=== PATIENT | female | born 1960 | race Caucasian/White ===

== ENCOUNTER → 2016-08-05 | Outpatient (CLI) | payer MEDICARE, OTHER ==
--- NOTE | 2016-08-05 14:18 | MM ---
Reason for exam: screening (asymptomatic). Baseline mammogram. History: Patient is postmenopausal. Took estrogen for 22 years beginning at age 30. Physical Findings: Nurse did not find any significant physical abnormalities on exam. MG 3D Screening Mammo W/Cad Bilateral CC and MLO view(s) were taken. No prior studies available for comparison. The breast tissue is almost entirely fat. Finding: There are typically benign dystrophic calcifications in the inner quadrant. There is no discrete abnormality. These results were verbally communicated with the patient and result sheet given to the patient on 08/05/16. ASSESSMENT: Benign, BI-RAD 2 RECOMMENDATION: Routine screening mammogram of both breasts in 1 year.
== END | disposition home or self-care (01) ==
LOC: RADMAMWWP 13:23
PROVIDERS: ATTEND Family Medicine
DX: Z12.31 Encounter for screening mammogram for malignant neoplasm of breast (principal)
CPT/HCPCS: 77063; G0202

== ENCOUNTER → 2016-12-07 | Outpatient (CLI) | payer MEDICARE, OTHER ==
--- NOTE | 2016-12-08 07:52 | WWHP ---
[facility] - HISTORY AND PHYSICAL DATE OF SERVICE: 12/07/2016 CHIEF COMPLAINT: The patient is here for her routine gynecologic exam. HPI: This is a 56-year-old G4, P2-0-2-2 with an LMP of 1997. She is status post MARIA GUADALUPE , BSO for endometriosis. The patient states it has been more than 15 years since her last pelvic exam. She has been experiencing occasional light vaginal bleeding about 2 times per month. She states this has been going on for at least 6 months. She has not been sexually active for more than 2 years. She states when she was sexually active , it was very uncomfortable and dry feeling. The more recent bleeding episodes are not related to any particular activity. She denies placing anything into the vagina. She previously used Ogen for the ERT, but this was discontinued in 2012 when she started having heart problems. She believes she has been having more fatigue and anxiety since the Ogen was discontinued. PAST MEDICAL HISTORY: Cardiac arrhythmia since 2012, status post cardiac ablation x2, history of anxiety and depression, asthma, and she has a skin condition called granuloma annulare. MEDICATIONS: 1. Potassium supplement daily. 2. Vitamin D3, 2000 units 2 p.o. daily. 3. Aspirin 81 mg daily. 4. Dyazide 37.5/25 mg 1 b.i.d. 5. Singulair 10 mg daily. 6. Celexa 40 mg daily. 7. Ativan 1 mg t.i.d. p.r.n. 8. Betamethasone 0.5% cream applied daily. ALLERGIES: Allergies to SULFA DRUGS, VANCOMYCIN, ERYTHROMYCIN and STATIN DRUGS. PAST SURGICAL HISTORY: section x2, cholecystectomy, MARIA GUADALUPE BSO in 1997, colonoscopy in 2014 and she has had one other one prior to that and also 2 cardiac ablation procedures in 2012. PAST OB HISTORY: Two sections and 2 spontaneous abortions. PAST TRAFFIC ENUMERATOR HISTORY: She underwent a MARIA GUADALUPE BSO for endometriosis. She does have a history of genital herpes with infrequent outbreaks. She has no other history of STDs. SOCIAL HISTORY: She denies tobacco, alcohol, and drug use. She is and is not seeing anybody at this time. FAMILY HISTORY: Father had colon cancer and an FL. Brother had thyroid cancer and another brother had melanoma. One brother had an FL. Both parents had type 1 diabetes and a brother also had type 1 diabetes. REVIEW OF SYSTEMS: She states she has gained lots of weight since her cardiac problems in 2012. She believes she has gained up to 100 pounds since that time. She denies respiratory or cardiac problems. GI: She does have frequent constipation. PHYSICAL EXAM: Blood pressure 120/70. This had to be taken manually since the automatic cuff was unable to register a blood pressure. The beats seem to be variable in intensity when obtaining the blood pressure. Height 5 feet 5 inches, weight 236 pounds, temperature 98.8, pulse 70 with variable intensity beats. This is a well-developed, heavyset white female, who is alert and oriented x3, in no acute distress. HEENT is within normal limits. NECK: Supple without mass or thyromegaly. CHEST AND LUNGS: Clear to auscultation. HEART: Irregularly, irregular rhythm with variable intensity beats. Breasts are without mass or discharge. Axillary exam is negative for adenopathy. BACK: Negative for CVA tenderness. ABDOMEN: Obese, soft, nontender, without palpable masses. PELVIC EXAM: Normal external genitalia with mild atrophy. Vagina reveals mild atrophy without lesions. The vaginal cuff was slightly friable upon doing the Pap smear. There is no unusual discharge or odor. There is no evidence of prolapse. Bimanual exam is negative for mass or tenderness. Rectovaginal exam is negative for mass or tenderness and is negative for occult blood. EXTREMITIES: Nontender. IMPRESSION: 1. A 56-year-old menopausal female, status post total abdominal hysterectomy, bilateral salpingo-oophorectomy for benign reasons with unremarkable gynecologic exam. 2. Intermittent postmenopausal vaginal bleeding and the patient is status post MARIA GUADALUPE, BSO. 3. Multiple medical problems including cardiac arrhythmia. PLAN: 1. Pap smear of the vaginal cuff was performed because of the abnormal vaginal bleeding. 2. Self breast examination was discussed. 3. Mammogram was done on 08/05/16 and was benign. She will repeat this in 1 year. 4. We have had a long discussion regarding the intermittent vaginal bleeding. We will have a trial of Vagifem 10 mcg intravaginally 2 times weekly. She had initially requested to be put back on oral ERT, but I do not feel that she is a good candidate because of her strong family history of FL and because of her own cardiac history with arrhythmia. 5. If the vaginal bleeding continues after 3 months, she was instructed to make an appointment for re-evaluation. 6. She will also return in 1 year and p.r.n. RUI / GARETH: [id number] / MARLIN
== END ==
LOC: WWCWWP 14:47
PROVIDERS: ATTEND Obstetrics & Gynecology
DX: Z01.419 Encounter for gynecological examination (general) (routine) without abnormal findings (principal)

== ENCOUNTER → 2017-03-30 | Outpatient (CLI) | payer MEDICARE, OTHER ==
--- NOTE | 2017-03-30 17:08 | CT ---
EXAMINATION TYPE: CT soft tissue neck w con DATE OF EXAM: 03/30/2017 HISTORY: Patient feels lump in throat on left side. Hoarseness. COMPARISON: Thyroid ultrasound March 16, 2017 CT DLP: 759 mGycm. Automated Exposure Control for Dose Reduction was Utilized. TECHNIQUE: CT scan of the neck is performed with IV Contrast, patient injected with 100 mL of Omnipa que 300, axial images are obtained, coronal and sagittal reformatted images are reviewed. FINDINGS: Airway: Small size thyroid redemonstrated. Parotid/submandibular glands: No gross abnormality seen. Carotid/Vascular Structures: Mild focal calcified plaque left carotid bulb. There is dominant right v ertebral artery. Distal left vertebral artery becomes stenotic or occluded before basilar origin. Osseous Structures: There is reversal of normal cervical curvature. There is moderate spurring and di sc space narrowing C5-C6 and C6-C7 levels. Posterior spur disc complexes effacing anterior thecal sac at these levels. Other: There are scattered subcentimeter lymph nodes throughout the neck bilaterally. No suspicious g reater than 1 cm neck lymph nodes are clearly seen. IMPRESSION: No suspicious mass or neck adenopathy is identified.
== END | disposition home or self-care (01) ==
LOC: RADCTMAIN 16:31
PROVIDERS: ATTEND Family Medicine
DX: R22.1 Localized swelling, mass and lump, neck (principal)
CPT/HCPCS: 70491; Q9967

== ENCOUNTER → 2017-09-07 | Outpatient (CLI) | payer MEDICARE, OTHER ==
--- NOTE | 2017-09-08 07:24 | US ---
EXAMINATION TYPE: US thyroid st tissue head/neck DATE OF EXAM: 09/07/2017 COMPARISON: NONE CLINICAL HISTORY: E04.1 Nontoxic Single Thyroid Nodule. follow up thyroid nodules. Difficulty swallo wing. Fatigue. GLAND SIZE: Right Lobe: 2.7 x 1.3 x 0.9 cm cm Overall Parenchyma: homogenous Left Lobe: 3.5 x 1.4 x 0.9 cm Overall Parenchyma: homogeneous Isthmus Thickness: 0.2 cm NODULES RIGHT: # of nodules measured on right: 1 Multiple subcentimeter hypoechoic nodules seen laterally. Largest measured. 1. 0.8 X 0.6 x 0.3 cm hypoechoic mixed nodule at the lower pole with well-defined margins. This no dule is taller than wide and shows slight intranodular vascularity. Prior size: 0.7 x 0.5 x 0.3 cm LEFT: # of nodules measured on left: 1 1. 0.5 X 0.3 x 0.3 cm hypoechoic nodule at the mid pole with well-defined margins. This nodule is taller than wide and shows no intranodular vascularity. Prior size: 0.4 x 0.3 x 0.3 cm ISTHMUS: # of nodules measured in the isthmus: 1 1. 0.5 X 0.4 x 0.2 cm hypoechoic nodule with well-defined margins. This nodule is taller than wide and shows no intranodular vascularity. Prior size: No previous Bilateral neck scanned. Multiple lymph nodes seen bilaterally. Largest measured. Largest on right = 1.7 x 0.7 x 0.5 cm. Largest on left = 1.5 x 0.9 x 0.5 cm. IMPRESSION: Overall stable bilateral subcentimeter thyroid nodules in comparison to the prior exam with additiona l newly identified subcentimeter hypoechoic isthmus thyroid nodule. Continued surveillance is recomme nded for these small nodules.
== END | disposition home or self-care (01) ==
LOC: RADUSWWP 15:16
PROVIDERS: ATTEND Family Medicine
DX: E04.2 Nontoxic multinodular goiter (principal)
CPT/HCPCS: 76536

== ENCOUNTER 2017-09-19 12:14 | Outpatient (CLI) | payer MEDICARE, OTHER | END 2017-09-19 13:00 | disposition home or self-care (01) | LOC: PTMAIN 12:14 | PROVIDERS: ATTEND Otolaryngology | DX: E11.9 Type 2 diabetes mellitus without complications (principal); Z53.9 Procedure and treatment not carried out, unspecified reason | CPT/HCPCS: 31579 ==

== ENCOUNTER → 2018-03-07 | Outpatient (CLI) | payer MEDICARE, OTHER | END | disposition home or self-care (01) | LOC: LABWHC1 13:47 | PROVIDERS: ATTEND Family Medicine | DX: E79.0 Hyperuricemia without signs of inflammatory arthritis and tophaceous disease (principal) | CPT/HCPCS: 36415; 84550 ==

== ENCOUNTER → 2018-06-02 | Outpatient (CLI) | payer MEDICARE, OTHER ==
[2018-06-02 18:35] LABS: Anion Gap 9.1 mmol/L (4.00-12.00); Calcium 9.4 mg/dL (8.7-10.3); Carbon Dioxide 26.9 mmol/L (21.6-31.8); LDL Cholesterol,Calculated 137.4 mg/dL (0.0-131.0); Potassium 3.6 mmol/L (3.5-5.5); VLDL Calculation 49.6 mg/dL (5.00-40.00)
== END ==
LOC: LABWHC1 12:03
PROVIDERS: ATTEND Family Medicine
DX: E78.2 Mixed hyperlipidemia (principal); M10.9 Gout, unspecified; R60.0 Localized edema
CPT/HCPCS: 36415; 80048; 80061; 84550

== ENCOUNTER → 2018-11-10 | Outpatient (CLI) | payer MEDICARE, OTHER ==
--- NOTE | 2018-11-10 19:00 | ECHOF ---
Referral Reason:R00.2 Palpitations MEASUREMENTS -------- HEIGHT: 165.1 cm WEIGHT: 108.9 kg BP: RVIDd: 3.2 cm (< 3.3) IVSd: 1.4 cm (0.6 - 1.1) LVIDd: 4.8 cm (3.9 - 5.3) LVPWd: 1.5 cm (0.6 - 1.1) IVSs: 1.6 cm LVIDs: 3.9 cm LVPWs: 1.3 cm LAESV Index (A-L): 16.70 ml/m Ao Diam: 2.6 cm (2.0 - 3.7) AV Cusp: 1.5 cm (1.5 - 2.6) LA Diam: 3.4 cm (2.7 - 3.8) EPSS: 1.3 cm MV E Anatoly: 0.69 m/s MV DecT: 163 ms MV A Anatoly: 0.92 m/s MV E/A Ratio: 0.75 RAP: 15.00 mmHg RVSP: 35.76 mmHg MV EF SLOPE: 86.57 mm/s (70 - 150) MV EXCURSION: 1.33 cm (> 18.000) FINDINGS -------- Undetermined rhythm. This was a technically adequate study. The left ventricular size is normal. There is moderate concentric left ventricular hypertrophy. O verall left ventricular systolic function is moderately impaired with, an EF between 35 - 40 %. The right ventricle is normal in size. The left atrial size is normal. The right atrial size is normal. The aortic valve is trileaflet and appears structurally normal. The mitral valve is normal. There is trace mitral regurgitation. The tricuspid valve appears structurally normal. Mild tricuspid regurgitation present. Right vent ricular systolic pressure is normal at < 35 mmHg. There is no pulmonic regurgitation present. The aortic root size is normal. The inferior vena cava is mildly dilated. There is no pericardial effusion. CONCLUSIONS -------- 1. Undetermined rhythm. 2. This was a technically adequate study. 3. The left ventricular size is normal. 4. There is moderate concentric left ventricular hypertrophy. 5. Overall left ventricular systolic function is moderately impaired with, an EF between 35 - 40 %. 6. The right ventricle is normal in size. 7. The left atrial size is normal. 8. The right atrial size is normal. 9. The aortic valve is trileaflet and appears structurally normal. 10. The mitral valve is normal. 11. There is trace mitral regurgitation. 12. The tricuspid valve appears structurally normal. 13. Mild tricuspid regurgitation present. 14. Right ventricular systolic pressure is normal at < 35 mmHg. 15. There is no pulmonic regurgitation present. 16. The aortic root size is normal. 17. The inferior vena cava is mildly dilated. 18. There is no pericardial effusion. GLASS INSPECTOR: Yaquelin Bradley RDCS
== END | disposition home or self-care (01) ==
LOC: RADECHMAIN 12:49
PROVIDERS: ATTEND Internal Medicine
DX: I07.1 Rheumatic tricuspid insufficiency (principal); I87.8 Other specified disorders of veins
CPT/HCPCS: 93306

== ENCOUNTER 2023-05-21 19:08 | Emergency (ER) | payer MEDICARE ==
--- NOTE | 2023-05-21 19:21 | ED ---
Arrhythmia/Palpitations HPI - General Stated Complaint: Cardiac symptoms Time Seen by Provider: 05/21/23 19:20 Source: patient, RN notes reviewed Mode of arrival: EMS Limitations: no limitations - History of Present Illness Initial Comments: Patient is a 63-year-old female presented to ER with chief complaint of atrial fibrillation. Patient was seen at urgent care and diagnosed with influenza. She states she went into [facility] for which she has a history of and urgent care sent her here for evaluation. Patient does take low-dose aspirin daily. Denies any chest pain, shortness of breath, dizziness, or lightheadedness. - Related Data Home Medications Medication Instructions Recorded Confirmed ALPRAZolam [Xanax] 0.5 mg PO DIRECTED PRN 07/01/14 05/24/15 Aspirin EC [Ecotrin Low Dose] 81 mg PO DAILY 07/01/14 05/24/15 Furosemide [Lasix] 20 mg PO DAILY 12/21/14 05/24/15 Potassium Chloride [Klor-Con 10 ER] 10 meq PO DIRECTED PRN 12/21/14 05/24/15 Venlafaxine HCl [Effexor] 150 mg PO BID 12/21/14 05/24/15 Albuterol Inhaler [Ventolin Hfa 2 puff INHALATION DIRECTED PRN 04/10/15 05/24/15 Inhaler] Sennosides [Senokot] 8.6 mg PO HS 04/10/15 05/24/15 Allergies Allergy/AdvReac Type Severity Reaction Status Date / Time atorvastatin calcium Allergy Diarrhea Verified 05/24/15 01:09 [From Lipitor] erythromycin base Allergy Rash/Hives Verified 05/24/15 01:09 [From E-Mycin] Sulfa (Sulfonamide Allergy Rash/Hives Verified 05/24/15 01:09 Antibiotics) cefazolin AdvReac SHORTNESS Verified 05/24/15 01:09 OF BREATH vancomycin AdvReac SHORTNESS Verified 05/24/15 01:09 OF BREATH Review of Systems ROS Statement: Those systems with pertinent positive or pertinent negative responses have been documented in the HPI. ROS Other: All systems not noted in ROS Statement are negative. Past Medical History Past Medical History: Coronary Artery Disease (CAD), COPD, Eye Disorder, Myocardial Infarction (DE), Osteoarthritis (OA), Pneumonia Additional Past Medical History / Comment(s): irregular heart beat. 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 Past Anesthesia/Blood Transfusion Reactions: Motion Sickness Additional Past Anesthesia/Blood Transfusion Reaction / Comment(s): CLAUSTERPHOBIA Past Psychological History: No Psychological Hx Reported Past Alcohol Use History: None Reported Past Drug Use History: None Reported - Past Family History Brother(s) Family Medical History: Cancer Additional Family Medical History / Comment(s): THYROID Sister(s) Family Medical History: Cancer Additional Family Medical History / Comment(s): MELANOMA Father Family Medical History: Cancer, Hypertension, Myocardial Infarction (DE) Additional Family Medical History / Comment(s): COLON Mother Family Medical History: Diabetes Mellitus, Deep Vein Thrombosis (DVT) Additional Family Medical History / Comment(s): Murmur General Exam - General Exam Comments Initial Comments: Visual Physical Exam General: Well-appearing, nontoxic, no acute distress. Head: Normocephalic, atraumatic Eyes: PERRLA, EOMI ENT: Airway patent Chest: Nonlabored breathing Skin: No visual rash, normal skin tone Neuro: Alert and oriented 3 Musculoskeletal: No gross abnormalities General appearance: alert, in no apparent distress Head exam: Present: atraumatic, normocephalic, normal inspection Eye exam: Present: normal appearance, PERRL, EOMI. Absent: scleral icterus, conjunctival injection, periorbital swelling Respiratory exam: Present: normal lung sounds bilaterally. Absent: respiratory distress, wheezes, rales, rhonchi, stridor Cardiovascular Exam: Present: regular rate, normal rhythm, normal heart sounds. Absent: systolic murmur, diastolic murmur, rubs, gallop, clicks Neurological exam: Present: alert, oriented X3, CN II-XII intact Psychiatric exam: Present: normal affect, normal mood Skin exam: Present: warm, dry, intact, normal color. Absent: rash Course Vital Signs 05/21/23 05/21/23 19:24 20:30 Temperature 99.2 F 98.3 F Pulse Rate 100 98 Respiratory 20 18 Rate Blood Pressure 143/85 117/75 O2 Sat by Pulse 95 96 Oximetry Medical Decision Making - Medical Decision Making I performed the quick note portion of this chart. Electronically signed by Cici Pastrana PA-C Was pt. sent in by a medical professional or institution (SANDOR Avery, GEOTHERMAL OPERATIONS ENGINEER, urgent care, hospital, or group home...) When possible be specific @ -Urgent care sent patient in via EMS for evaluation of atrial fibrillation Did you speak to anyone other than the patient for history (EMS, parent, family, police, friend...)? What history was obtained from this source @ -No Did you review nursing and triage notes (agree or disagree)? Why? @ -I reviewed and agree with nursing and triage notes Were old charts reviewed (outside hosp., previous admission, EMS record, old EKG, old radiological studies, urgent care reports/EKG's, group home records)? Report findings @ -No old charts were reviewed Differential Diagnosis (chest pain, altered mental status, abdominal pain women, abdominal pain men, vaginal bleeding, weakness, fever, dyspnea, syncope, headache, dizziness, GI bleed, back pain, seizure, CVA, palpatations, mental health, musculoskeletal)? @ -Differential Chest Pain:Stable Angina, Unstable Angina, STEMI, NSTEMI Aortic Dissection, Pneumothorax, Musculoskeletal, Esophageal Spasm GERD, Cholecystitis, Pancreatitis, Zoster, this is not meant to be an all-inclusive list. ] EKG interpreted by me (3pts min.). @ -As above X-rays interpreted by me (1pt min.). @ -Chest x-ray interpreted by me shows no acute cardiopulmonary process. CT interpreted by me (1pt min.). @ -None done U/S interpreted by me (1pt. min.). @ -None done What testing was considered but not performed or refused? (CT, X-rays, U/S, labs)? Why? @ -None What meds were considered but not given or refused? Why? @ -None Did you discuss the management of the patient with other professionals (professionals i.e. Dr., PA, GEOTHERMAL OPERATIONS ENGINEER, lab, RT, psych nurse, social contact worker, corn press operator, teacher, air antisubmarine officer, family caseworker)? Give summary @ -No Was smoking cessation discussed for >3mins.? @ -No Was critical care preformed (if so, how long)? @ -No Were there social determinants of health that impacted care today? How? (Homelessness, low income, unemployed, alcoholism, drug addiction, transportation, low edu. Level, literacy, decrease access to med. care, [facility], rehab)? @ -No Was there de-escalation of care discussed even if they declined (Discuss DNR or withdrawal of care, Hospice)? DNR status @ -No What co-morbidities impacted this encounter? (DM, HTN, Smoking, COPD, CAD, Cancer, CVA, ARF, Chemo, Hep., AIDS, mental health diagnosis, sleep apnea, morbid obesity)? @ -Paroxysmal atrial fibrillation Was patient admitted / discharged? Hospital course, mention meds given and route, prescriptions, significant lab abnormalities, going to OR and other pertinent info. @ -Discharge. Patient is a 63-year-old female presented to ER with chief complaint of atrial fibrillation. Patient sent here from urgent care after being diagnosed with influenza A. She states urgent care made her come to the ER for evaluation of atrial fibrillation. She reports this is a chronic issue and she takes baby aspirin daily. History and physical exam completed. Vital stable. Patient in no signs of acute distress and nontoxic-appearing. Lung sounds clear to auscultation bilaterally. Heart regular rhythm normal heart sounds. EKG showing sinus tachycardia with no acute ST segment or T wave abnormalities. Chest x-ray interpreted by me shows no acute cardiopulmonary process. Upon reevaluation, patient stated she would like to go home as she has no pain and feels well. She does report she would like a dose of Tamiflu prior to discharge. Case discussed with Dr. Collier, ER attending who is in agreement with plan. Patient discharged in stable condition with follow-up to PCP. Strict return parameters discussed. Patient expressed understanding and agreement with care plan. Undiagnosed new problem with uncertain prognosis? @ -No Drug Therapy requiring intensive monitoring for toxicity (Heparin, Nitro, Insulin, Cardizem)? @ -No Were any procedures done? @ -No Diagnosis/symptom? @ -influenza A/ viral sinusitis Acute, or Chronic, or Acute on Chronic? @ -Acute Uncomplicated (without systemic symptoms) or Complicated (systemic symptoms)? @ -Uncomplicated Side effects of treatment? @ -No Exacerbation, Progression, or Severe Exacerbation? @ -No Poses a threat to life or bodily function? How? (Chest pain, USA, DE, pneumonia, PE, COPD, DKA, ARF, appy, cholecystitis, CVA, Diverticulitis, Homicidal, Suicidal, threat to staff... and all critical care pts) @ -No - EKG Data -: EKG Interpreted by Me EKG Comments: EKG taken at 19: 34 shows sinus tachycardia. Ventricular rate 101, CA interval 165, QRS duration 197, QT/QTc 403/461. - Radiology Data Radiology results: report reviewed, image reviewed Disposition Clinical Impression: Influenza A Disposition: HOME SELF-CARE Condition: Stable Instructions (If sedation given, give patient instructions): Chest Pain (ED) Additional Instructions: Please have low threshold to return to the ER. Follow-up with PCP. Is patient prescribed a controlled substance at d/c from ED?: No Referrals: Marciano Erickson MD [Primary Care Provider] - 1-2 days Time of Disposition: 20:27
--- NOTE | 2023-05-21 19:50 | XR ---
EXAMINATION TYPE: XR chest 2V DATE OF EXAM: 05/21/2023 7:47 PM CLINICAL INDICATION:Female, 63 years old with history of palpitations; [facility] COMPARISON: Chest radiographs from 05/24/2015 TECHNIQUE: XR chest 2V Frontal and lateral views of the chest. FINDINGS: Lungs/Pleura: There is no evidence of pleural effusion, focal consolidation, or pneumothorax. Pulmonary vascularity: Unremarkable. Heart/mediastinum: Cardiomediastinal silhouette is unremarkable. Musculoskeletal: No acute osseous pathology. Other findings: None IMPRESSION: No acute cardiopulmonary disease/process.
[2023-05-21] MEDS: OSELTAMIVIR 75 MG CAP PO STA (20:29)
[2023-05-21 20:53] VITALS: BP 117/75; PULSE 98; RESP 18; TEMP 98.3
== END 2023-05-21 20:30 | disposition home or self-care (01) ==
LOC: EC 19:08
DX: J10.1 Influenza due to other identified influenza virus with other respiratory manifestations (principal); I25.10 Atherosclerotic heart disease of native coronary artery without angina pectoris; J44.9 Chronic obstructive pulmonary disease, unspecified; I25.2 Old myocardial infarction; Z79.899 Other long term (current) drug therapy; Z79.82 Long term (current) use of aspirin; Z88.2 Allergy status to sulfonamides; Z88.1 Allergy status to other antibiotic agents; Z88.8 Allergy status to other drugs, medicaments and biological substances
CPT/HCPCS: 71046; 93005; 99285

== ENCOUNTER → 2023-08-10 | Outpatient (CLI) | payer MEDICARE ==
--- NOTE | 2023-08-11 00:02 | US ---
EXAMINATION TYPE: US abdomen complete DATE OF EXAM: 08/10/2023 COMPARISON: NONE CLINICAL INDICATION: Female, 63 years old with history of K75.81 FARRELL; FARRELL gallbladder removed. TECHNIQUE: Multiple sonographic images of the abdomen are obtained. FINDINGS: EXAM MEASUREMENTS: Liver Length: 17.1 cm Gallbladder Wall: Surgically absent CBD: .8 cm Spleen: 11.8 cm Right Kidney: 12.2 x 4.3 x 4.3 cm Left Kidney: 10.4 x 5.3 x 4.0 cm PAPER CUTTER OPERATOR NOTES: Pancreas: Tail obscured by overlying bowel gas Liver: Increased attenuation can be compatible with fatty infiltration. Gallbladder: Surgically absent Evidence for sonographic Lim's sign: no CBD: Normal postsurgical Spleen: wnl Right Kidney: No hydronephrosis or masses seen Left Kidney: No hydronephrosis or masses seen Upper IVC: wnl Abd Aorta: wnl IMPRESSION: 1. Mild fatty infiltration liver with mild hepatomegaly.
== END | disposition home or self-care (01) ==
LOC: RADUSWWP 09:58
PROVIDERS: ATTEND Internal Medicine Geriatric Medicine
DX: K75.81 Nonalcoholic steatohepatitis (NASH) (principal); R16.0 Hepatomegaly, not elsewhere classified; Z90.49 Acquired absence of other specified parts of digestive tract
CPT/HCPCS: 76700

== ENCOUNTER 2024-10-12 17:21 | Emergency (ER) | payer MEDICARE ==
[2024-10-12 17:55] VITALS: TEMP 98.1
--- NOTE | 2024-10-12 18:14 | ED ---
Lower Extremity Injury HPI - General Chief Complaint: Extremity Injury, Lower Stated Complaint: L leg pain Time Seen by Provider: 10/12/24 17:37 Source: patient, RN notes reviewed Mode of arrival: ambulatory Limitations: no limitations - History of Present Illness Initial Comments: This is a 64-year-old female with history including CAD, COPD, AMI and irregular heartbeat presenting for left upper leg pain (12/28) x 4 days. Patient states she was helping a neighbor who had fallen when she felt a "rip" on the outside of the back of her thigh. Patient states she is only able to partially bear weight due to the pain. Endorses use of ibuprofen and Salonpas patches with minimal relief. MD Complaint: thigh injury Onset/Timin -: days(s) Injury: Thigh: Left Place: home Severity scale (1-10): 10 Improves With: immobilization, rest Worsens With: weight bearing, movement, palpation Context: other (Pulling) Associated Symptoms: snap/pop sensation, able to partially bear weight Treatments Prior to Arrival: NSAIDS - Related Data Home Medications Medication Instructions Recorded Confirmed ALPRAZolam [Xanax] 0.5 mg PO DIRECTED PRN 07/01/14 05/24/15 Aspirin EC [Ecotrin Low Dose] 81 mg PO DAILY 07/01/14 05/24/15 Furosemide [Lasix] 20 mg PO DAILY 12/21/14 05/24/15 Potassium Chloride [Klor-Con 10 ER] 10 meq PO DIRECTED PRN 12/21/14 05/24/15 Venlafaxine HCl [Effexor] 150 mg PO BID 12/21/14 05/24/15 Albuterol Inhaler [Ventolin Hfa 2 puff INHALATION DIRECTED PRN 04/10/15 05/24/15 Inhaler] Sennosides [Senokot] 8.6 mg PO HS 04/10/15 05/24/15 Previous Rx's Medication Instructions Recorded Ibuprofen [Motrin] 800 mg PO Q8HR PRN #30 tab 10/12/24 Lidocaine 4% Patch 1 patch TOPICAL Q24H PRN #10 patch 10/12/24 Allergies Allergy/AdvReac Type Severity Reaction Status Date / Time atorvastatin calcium Allergy Diarrhea Verified 10/12/24 17:55 [From Lipitor] erythromycin base Allergy Rash/Hives Verified 10/12/24 17:55 [From E-Mycin] Sulfa (Sulfonamide Allergy Rash/Hives Verified 10/12/24 17:55 Antibiotics) cefazolin AdvReac SHORTNESS Verified 10/12/24 17:55 OF BREATH vancomycin AdvReac SHORTNESS Verified 10/12/24 17:55 OF BREATH Review of Systems ROS Statement: Those systems with pertinent positive or pertinent negative responses have been documented in the HPI. ROS Other: All systems not noted in ROS Statement are negative. Past Medical History Past Medical History: Coronary Artery Disease (CAD), COPD, Eye Disorder, Myocardial Infarction ([place]), Osteoarthritis (OA), Pneumonia Additional Past Medical History / Comment(s): irregular heart beat. 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 Past Anesthesia/Blood Transfusion Reactions: Motion Sickness Additional Past Anesthesia/Blood Transfusion Reaction / Comment(s): CLAUSTERPHOBIA Past Psychological History: No Psychological Hx Reported Past Alcohol Use History: None Reported Past Drug Use History: None Reported - Past Family History Brother(s) Family Medical History: Cancer Additional Family Medical History / Comment(s): THYROID Sister(s) Family Medical History: Cancer Additional Family Medical History / Comment(s): MELANOMA Father Family Medical History: Cancer, Hypertension, Myocardial Infarction ([place]) Additional Family Medical History / Comment(s): COLON Mother Family Medical History: Diabetes Mellitus, Deep Vein Thrombosis (DVT) Additional Family Medical History / Comment(s): Murmur General Exam Limitations: no limitations General appearance: alert, in no apparent distress Head exam: Present: atraumatic, normocephalic, normal inspection Eye exam: Present: normal appearance, PERRL, EOMI. Absent: scleral icterus, conjunctival injection, periorbital swelling ENT exam: Present: normal exam, mucous membranes moist Neck exam: Present: normal inspection. Absent: tenderness, meningismus, lymphadenopathy Respiratory exam: Present: normal lung sounds bilaterally. Absent: respiratory distress, wheezes, rales, rhonchi, stridor Cardiovascular Exam: Present: regular rate, normal rhythm, normal heart sounds. Absent: systolic murmur, diastolic murmur, rubs, gallop, clicks GI/Abdominal exam: Present: soft, normal bowel sounds. Absent: distended, tenderness, guarding, rebound, rigid Extremities exam: Present: normal inspection, full ROM, tenderness (Positive left lateral thigh TTP extending from iliac crest to superior tibia (IT band). Patient also having left lateral hamstring tenderness), normal capillary refill, other (Distal LLE neurovascular and motor function intact. Posterior tibialis pulse +2. Patient able to straight leg raise and abduct left leg while lying on right side with some pain noted. Strength 4/5 with abduction). Absent: pedal edema, joint swelling, calf tenderness Back exam: Present: normal inspection Neurological exam: Present: alert, oriented X3, CN II-XII intact Psychiatric exam: Present: normal affect, normal mood Skin exam: Present: warm, dry, intact, normal color. Absent: rash Course Vital Signs 10/12/24 10/12/24 17:52 20:01 Temperature 98.1 F Pulse Rate 100 94 Respiratory 22 18 Rate Blood Pressure 118/76 111/77 O2 Sat by Pulse 95 94 L Oximetry Medical Decision Making - Medical Decision Making Was pt. sent in by a medical professional or institution ([facility], LEGAL RESEARCHER, urgent care, hospital, or jail...) When possible be specific @ -No Did you speak to anyone other than the patient for history (EMS, parent, family, police, friend...)? What history was obtained from this source @ -No Did you review nursing and triage notes (agree or disagree)? Why? @ -I reviewed and agree with nursing and triage notes Were old charts reviewed (outside hosp., previous admission, EMS record, old EKG, old radiological studies, urgent care reports/EKG's, jail records)? Report findings @ -No old charts were reviewed Differential Diagnosis (chest pain, altered mental status, abdominal pain women, abdominal pain men, vaginal bleeding, weakness, fever, dyspnea, syncope, headache, dizziness, GI bleed, back pain, seizure, CVA, palpatations, mental health, musculoskeletal)? @ -Differential Musculoskeletal Muscular strain, contusion, ligament sprain, fracture, arthritis, septic arthritis, bursitis, cellulitis, muscle spasm, nerve compression, DVT, arterial occlusion, herpes zoster, electrolyte abnormality, tumor.... This is not meant to be in all inclusive list EKG interpreted by me (3pts min.). @ -Not done X-rays interpreted by me (1pt min.). @ -Left femur and hip x-ray shows no acute fracture or dislocation. CT interpreted by me (1pt min.). @ -None done U/S interpreted by me (1pt. min.). @ -None done What testing was considered but not performed or refused? (CT, X-rays, U/S, labs)? Why? @ -None What meds were considered but not given or refused? Why? @ -None Did you discuss the management of the patient with other professionals (professionals i.e. , PA, LEGAL RESEARCHER, lab, RT, psych nurse, oncology social work, rope walker, teacher, motorcycle police officer, porter sample case)? Give summary @ -No Was smoking cessation discussed for >3mins.? @ -No Was critical care preformed (if so, how long)? @ -No Were there social determinants of health that impacted care today? How? (Homelessness, low income, unemployed, alcoholism, drug addiction, transportation, low edu. Level, literacy, decrease access to med. care, correction, r ehab)? @ -No Was there de-escalation of care discussed even if they declined (Discuss DNR or withdrawal of care, Hospice)? DNR status @ -No What co-morbidities impacted this encounter? (DM, HTN, Smoking, COPD, CAD, Cancer, CVA, ARF, Chemo, Hep., AIDS, mental health diagnosis, sleep apnea, morbid obesity)? @ -None Was patient admitted / discharged? Hospital course, mention meds given and route, prescriptions, significant lab abnormalities, going to OR and other pertinent info. @ -Patient initially provided IM Toradol, p.o. Tylenol and lidocaine patch for pain with additional Toradol provided shortly afterwards. Left femur and hip x- ray shows no acute fracture or dislocation. Patient provided additional IM Toradol and Norflex due to ongoing pain. Motrin and lidocaine patches sent to patient's pharmacy. Advised RICE and alternate Tylenol/Motrin for as for pain. Ruslan follow-up with PCP/orthopedics regarding any ongoing pain. Discussed patient with Dr. Aguilar. Undiagnosed new problem with uncertain prognosis? @ -No Drug Therapy requiring intensive monitoring for toxicity (Heparin, Nitro, Insulin, Cardizem)? @ -No Were any procedures done? @ -No Diagnosis/symptom? @ -IT band sprain, hamstring strain Acute, or Chronic, or Acute on Chronic? @ -Acute Uncomplicated (without systemic symptoms) or Complicated (systemic symptoms)? @ -Uncomplicated Side effects of treatment? @ -No Exacerbation, Progression, or Severe Exacerbation? @ -No Poses a threat to life or bodily function? How? (Chest pain, [place], [place], pneumonia, PE, COPD, DKA, ARF, appy, cholecystitis, CVA, Diverticulitis, Homicidal, Suicidal, threat to staff... and all critical care pts) @ -No Disposition Clinical Impression: Iliotibial band syndrome of left side, Strain of hamstring Disposition: HOME SELF-CARE Condition: Good Instructions (If sedation given, give patient instructions): Hamstring Injury (ED), Leg Pain (ED) Additional Instructions: Apply cool compress to affected area for 10 minutes up to 4 times daily. Allow for adequate rest of leg to allow for recovery. Follow-up with PCP/orthopedics for management of any ongoing leg pain. Prescriptions: Lidocaine 4% Patch 1 patch TOPICAL Q24H PRN #10 patch PRN Reason: Pain Ibuprofen [Motrin] 800 mg PO Q8HR PRN #30 tab PRN Reason: Pain Is patient prescribed a controlled substance at d/c from ED?: No Referrals: Marciano Erickson MD [Primary Care Provider] - 1-2 days [facility] [Provider Group] - 1-2 days [facility] [Provider Group] - 1-2 days Time of Disposition: 19:30
[2024-10-12] MEDS: KETOROLAC 15 MG/ML 1 ML VIAL IVP STA (18:27)
[2024-10-12] MEDS: ACETAMINOPHEN TAB 500 MG TAB PO STA (18:31)
[2024-10-12] MEDS: KETOROLAC 15 MG/ML 1 ML VIAL IM STA ×2 (18:32→19:52)
[2024-10-12] MEDS: LIDOCAINE 4% PATCH TOPICAL ONE (18:34)
--- NOTE | 2024-10-12 19:38 | XR ---
EXAMINATION TYPE: XR femur LT DATE OF EXAM: 10/12/2024 7:33 PM COMPARISON: None. CLINICAL INDICATION: Female, 64 years old with history of Left hip and femur pain, pain TECHNIQUE: XR femur LT XX views were obtained. FINDINGS: There is no acute fracture or dislocation seen of the femur. The hip and knee joints latoya ear within normal limits. The overlying soft tissue appears unremarkable. IMPRESSION: There is no acute fracture or dislocation seen of the femur. [facility], , 10/12/2024 7:36 PM
--- NOTE | 2024-10-12 19:42 | XR ---
EXAMINATION TYPE: XR Hip Complete LT DATE OF EXAM: 10/12/2024 7:33 PM COMPARISON: None. CLINICAL INDICATION: Female, 64 years old with history of Left hip and femur pain, pain TECHNIQUE: XR Hip Complete LT XX views were obtained. FINDINGS: There is no acute fracture/dislocation evident. The joint space appears within normal limits. The o verlying soft tissue appears unremarkable. IMPRESSION: No acute fracture or dislocation. [facility], , 10/12/2024 7:40 PM
[2024-10-12] MEDS: ORPHENADRINE 30 MG/ML 2 ML VIAL IM STA (19:53)
[2024-10-12 20:02] VITALS: BP 111/77; PULSE 94; RESP 18
== END 2024-10-12 20:02 | disposition home or self-care (01) ==
LOC: EC 17:21
DX: S76.912A Strain of unspecified muscles, fascia and tendons at thigh level, left thigh, initial encounter (principal); M76.32 Iliotibial band syndrome, left leg; I25.10 Atherosclerotic heart disease of native coronary artery without angina pectoris; J44.9 Chronic obstructive pulmonary disease, unspecified; I25.2 Old myocardial infarction; Z88.1 Allergy status to other antibiotic agents; Z88.2 Allergy status to sulfonamides; X50.9XXA Other and unspecified overexertion or strenuous movements or postures, initial encounter
CPT/HCPCS: 73502; 96372; 99284

== ENCOUNTER → 2024-10-16 | Outpatient (CLI) | payer MEDICARE ==
--- NOTE | 2024-10-16 14:59 | US ---
EXAMINATION TYPE: US thyroid st tissue head/neck DATE OF EXAM: 10/16/2024 COMPARISON: Thyroid ultrasound 09/07/17, 03/16/2017, CT soft tissue neck 03/30/2017 CLINICAL INDICATION: Female, 64 years old with history of E04.1 NONTOXIC SINGLE THYROID NODULE; Pt st ates her doctor felt a nodule on left side TECHNIQUE: Grayscale and color Doppler imaging of the thyroid gland. FINDINGS: GLAND SIZE: Right Lobe: 2.8 x 1.1 x 1.2 cm Overall Parenchyma: heterogeneous Left Lobe: 3.6 x 1.1 x 1.0 cm Overall Parenchyma: heterogeneous Isthmus Thickness: 0.2 cm NODULES RIGHT: # of nodules measured on right: 0 subcentimeter nodules seen LEFT: # of nodules measured on left: 0 subcentimeter nodules seen ISTHMUS: # of nodules measured in the isthmus: 0 Bilateral neck scanned. Nonenlarged benign-appearing right neck lymph node measuring 0.6 x 0.3 cm wit h a cortex of 2 mm. Normal central fatty hilum. Benign-appearing left neck lymph node measuring 1.9 x 1.0 cm with cortex thickness of 4 mm. Normal central fatty hilum. IMPRESSION: 1. Few bilateral subcentimeter thyroid nodules. No follow-up recommended. 2. Benign appearing bilateral neck lymph nodes. [facility], , 10/16/2024 2:56 PM
== END | disposition home or self-care (01) ==
LOC: RADUSWWP 14:01
PROVIDERS: ATTEND Internal Medicine Geriatric Medicine
DX: E04.2 Nontoxic multinodular goiter (principal)
CPT/HCPCS: 76536